=== PATIENT | male | born 1975 | race Caucasian/White ===

== ENCOUNTER 2017-03-16 12:33 | Emergency (ER) | payer MEDICAID ==
[~2017-03-16] VITALS: Ht 185.4 cm; Wt 154.2 kg
[~2017-03-16 12:33] MED LIST: ATEN50TA; HYDR25TA4; VALS80TA2 PO
[2017-03-16 13:10] VITALS: BP_SYST 149
[2017-03-16] MEDS ORDERED: cefTRIAXone 1 GM VIAL IM ONE (13:15)
[2017-03-16] MEDS ORDERED: cefTRIAXone 1 GM in LIDOCAINE 1%, 20 ML MDV 2.1 ML IM ONE (13:15)
[2017-03-16] MEDS ORDERED: cefTRIAXone 1 GM VIAL ONE (13:48)
== END 2017-03-16 15:37 | disposition left against medical advice (07) ==
LOC: SED 12:35
DX: L03.116 Cellulitis of left lower limb (principal)
CPT/HCPCS: 96372; 99284; J0696; J2001

== ENCOUNTER 2023-05-13 07:45 | Emergency (ER) | payer MEDICAID ==
[~2023-05-13] VITALS: Ht 185.4 cm; Wt 176.9 kg
== END 2023-05-13 08:38 | disposition home or self-care (01) ==
LOC: SED 07:45
DX: M79.671 Pain in right foot (principal); Z53.21 Procedure and treatment not carried out due to patient leaving prior to being seen by health care provider
CPT/HCPCS: 99281